=== PATIENT | male | born 1980 | race Caucasian/White ===

== ENCOUNTER 2023-01-16 21:40 | Emergency (ER) | payer OTHER, MEDICAID, SELFPAY ==
[2023-01-16 21:52] VITALS: BP 144/81; PULSE 102; RESP 18; TEMP 37.4; O2SAT 97; BMI 25.8
--- NOTE | 2023-01-16 22:00 | ED.BACK ---
HPI - Back Pain/Injury General Chief Complaint: Back Pain/Injury Stated Complaint: back pain Time Seen by Provider: 01/16/23 21:43 Source: patient History of Present Illness HPI Narrative: 42-year-old male presents for lower thoracic and upper lumbar back pain that began yesterday after picking up a heavy object. Patient states he tweaked his back after lifting the object and since then his back has been very painful. Took ibuprofen prior to arrival with moderate improvement in pain. Related Data Previous Rx's Medication Instructions Recorded methocarbamol 500 mg tablet 500 mg PO QID PRN muscle spasm #30 01/16/23 tabs Allergies Allergy/AdvReac Type Severity Reaction Status Date / Time codeine Allergy Verified 01/16/23 22:23 Review of Systems Review of Systems Narrative: Negative except as noted above Patient History Social History Smoking Status: Current some day smoker Smoking Status: Current some day smoker tobacco type: cigarettes alcohol intake frequency: a few times a week Alcohol type: beer Substance Use Type: does not use Exam Initial Vital Signs Initial Vital Signs: Vital Signs Temperature 99.3 F 01/16/23 21:52 Pulse Rate 102 H 01/16/23 21:52 Respiratory Rate 18 01/16/23 21:52 Blood Pressure 144/81 H 01/16/23 21:52 Pulse Oximetry 97 01/16/23 21:52 Oxygen Delivery Method Room Air 01/16/23 21:52 Const: Awake, alert, no acute distress, nontoxic appearing Cardiac: regular rate, regular rhythm RESP: unlabored, clear bilaterally, no wheezing Back: no midline tenderness, palpable paraspinal muscle spasm at throacolumbar transition MSK: Atraumatic, full range of motion, pulses equal Skin: Warm, Dry, intact, no rashes Neuro: AO x3, CN II-XII grossly intact, moves all extremities Psych: affect normal, mood normal, not suicidal, not homicidal Course Course Course Narrative: Atraumatic thoracolumbar back pain. No midline vertebral tenderness, no neurologic signs or symptoms. No indication for imaging at this time. Patient given non-narcotic analgesia and symptoms improved. DC with instructions to take tylenol and motrin for pain. Muscle relaxer sent to pharmacy of choice Orders Ordered: Discontinued Medications Acetaminophen (Ofirmev) 1,000 mg in 100 mls @ 400 mls/hr IV NOW ONE Stop: 01/16/23 22:22 Last Infusion: 01/16/23 22:53 Dose: Infused Documented By: Admin: 01/16/23 22:32 Dose: 400 mls/hr Documented By: BRII Ketorolac Tromethamine (Ketorolac 30 Mg/Ml Vial) 15 mg IV NOW ONE Stop: 01/16/23 22:09 Last Admin: 01/16/23 22:31 Dose: 15 mg Documented By: BRII Lidocaine (Lidocaine 5% Patch) 1 each TOP NOW ONE Stop: 01/16/23 22:09 Last Admin: 01/16/23 22:32 Dose: 1 each Documented By: BRII Methocarbamol (Methocarbamol 500 Mg Tablet) 750 mg PO NOW ONE Stop: 01/16/23 22:09 Last Admin: 01/16/23 22:30 Dose: 750 mg Documented By: BRII Vital Signs Vital signs: Vital Signs - 8 hr 01/16/23 21:52 01/16/23 23:35 Temperature 99.3 F 97.9 F Pulse Rate 102 H 78 Respiratory Rate 18 20 Blood Pressure 144/81 H 144/87 H Pulse Oximetry 97 96 Oxygen Delivery Method Room Air Room Air MDM - Back Pain/Injury Differential Diagnosis Differential diagnosis: Likely sciatica, strain of lumbar region and thoracic back pain Discharge Plan Departure Patient Disposition: Home Clinical Impression: Acute back pain Instructions: DI for Back Spasm Prescriptions: New methocarbamol 500 mg tablet 500 mg PO QID PRN (Reason: muscle spasm) Qty: 30 0RF Stand Alone Forms: Patient Portal/API
[2023-01-16] MEDS: methocarbamoL 500 MG TABLET 750 MG PO (22:30)
[2023-01-16] MEDS: KETOROLAC 30 MG/ML VIAL 15 MG IV (22:31)
[2023-01-16] MEDS: LIDOCAINE 5% PATCH 1 EACH TOP (22:32)
[2023-01-16] MEDS: ACETAMINOPHEN IV 1,000 MG/100 ML VIAL 400 MG IV (22:32)
[2023-01-16 23:35] VITALS: BP 144/87; PULSE 78; RESP 20; TEMP 36.6; O2SAT 96
== END 2023-01-16 23:43 | disposition home or self-care (01) ==
PROVIDERS: Emergency Provider Emergency Medicine
DX: M54.89 Other dorsalgia (principal)
CPT/HCPCS: 96365; 96375; 99283; 99284; J0131; J1885